=== PATIENT | male | born 1955 | race Two or more races ===

== ENCOUNTER → 2016-12-17 | Outpatient (CLI) | payer OTHER ==
[~2016-12-17] MED LIST: CLINDAMYCIN HC150 MG PO; PERCOCET 5/31 TABLET PO; VIBRAMYCIN100 MG PO
== END | disposition home or self-care (01) ==
LOC: RAD 13:45
DX: M47.897 Other spondylosis, lumbosacral region (principal); M48.56XA Collapsed vertebra, not elsewhere classified, lumbar region, initial encounter for fracture
CPT/HCPCS: 72100